=== PATIENT | female | born 1975 | race Caucasian/White ===

== ENCOUNTER 2016-07-21 16:59 | Emergency (ER) | payer SELFPAY ==
[2016-07-21 17:55] VITALS: BP 120/70
--- NOTE | 2016-07-21 18:26 | UC ---
Complaint Female HPI - HPI Summary HPI Summary: Period ended 4 days ago, but has continued to see red/brown when she wipes. Nothing when not urinating, so not sure if it is urinary bleeding or vag bleeding. Also feeling very wiped out, crampy low back pain, and elevated blood sugars when she checks them. Wonders if it could be a urinary infection. - History Of Current Complaint Stated Complaint: BACK PAIN,BLOOD IN URINE Time Seen by Provider: 07/21/16 17:37 Hx Obtained From: Patient Hx Last Menstrual Period: 03/08/15 ?: No Onset/Duration: Gradual Onset, Lasting Days Timing: Constant Severity Initially: Mild Severity Currently: Mild Character: Cramping Aggravating Factor(s): Urination Alleviating Factor(s): Nothing Associated Signs And Symptoms: Positive: Vaginal Bleeding/Discharge - Allergies/Home Medications Allergies/Adverse Reactions: Allergies Allergy/AdvReac Type Severity Reaction Status Date / Time Lisinopril Allergy Swelling Verified 07/21/16 17:56 Of Face,Lips,& Throat [place] Allergy Airway Uncoded 07/21/16 17:56 Obstruction Home Medications: Home Medications Insulin LISPRO* [HumaLOG*] 5 units 07/21/16 [History] Ranitidine HCl [Zantac] 1 tab 07/21/16 [History] PMH/Surg Hx/FS Hx/Imm Hx Endocrine History Of: Reports: Diabetes - TYPE 1 Denies: Thyroid Disease Cardiovascular History Of: Denies: Cardiac Disorders, Hypertension, Myocardial Infarction Respiratory History Of: Denies: COPD, Asthma GI/ History Of: Reports: Renal Disease - PROTEINURIA Denies: Ulcer - Surgical History Surgical History: Yes Surgery Procedure, Year, and Place: C-SECTIONS 1995 & 1999. TUBAL LIGATION - Family History Known Family History: Positive: Cardiac Disease, Diabetes - Social History Occupation: Employed Full-time Alcohol Use: None Substance Use Type: Excessive Caffeine Smoking Status (MU): Never Smoked Tobacco Review of Systems Constitutional: Negative Skin: Negative Eyes: Negative ENT: Negative Respiratory: Negative Cardiovascular: Negative Gastrointestinal: Negative Genitourinary: Hematuria Motor: Negative Neurovascular: Negative Musculoskeletal: Negative Neurological: Negative Psychological: Negative All Other Systems Reviewed And Are Negative: Yes Physical Exam Triage Information Reviewed: Yes Appearance: No Pain Distress, Well-Nourished Vital Signs Reviewed: Yes Eye Exam: Normal Eyes: Positive: Conjunctiva Clear ENT Exam: Normal ENT: Positive: Normal ENT inspection, Hearing grossly normal, Pharynx normal, TMs normal Dental Exam: Normal Neck exam: Normal Neck: Positive: Supple, Nontender, No Lymphadenopathy Respiratory Exam: Normal Respiratory: Positive: Chest non-tender, Lungs clear, Normal breath sounds, No respiratory distress, No accessory muscle use Cardiovascular Exam: Normal Cardiovascular: Positive: RRR, No Murmur Abdomen Description: Positive: Nontender. Negative: CVA Tenderness (R), CVA Tenderness (L) Musculoskeletal Exam: Normal Neurological Exam: Normal Psychological Exam: Normal Skin Exam: Normal Complaint Female Dx - Differential Dx/Diagnosis Provider Diagnoses: vaginal spotting. low back pain Discharge - Discharge Plan Condition: Stable Disposition: HOME Patient Education Materials: Back Pain (ED) Referrals: Ramsey Ortega MD [Primary Care Provider] - Additional Instructions: As we discussed, you do not appear to have a UTI. If your symptoms do not resolve by your next period, I recommend you see your primary care provider or your [facility].
== END 2016-07-21 18:39 | disposition home or self-care (01) ==
LOC: UCEAST 16:59
DX: N93.9 Abnormal uterine and vaginal bleeding, unspecified (principal); M54.5 Low back pain; R80.9 Proteinuria, unspecified; Z32.02 Encounter for pregnancy test, result negative; E10.9 Type 1 diabetes mellitus without complications; Z79.4 Long term (current) use of insulin; Z88.8 Allergy status to other drugs, medicaments and biological substances
CPT/HCPCS: 81003; 84702; 87077; 87086; 87186; 99212; G0463

== ENCOUNTER 2017-07-04 19:11 | Emergency (ER) | payer OTHER ==
[2017-07-04 19:35] VITALS: BP 125/70
--- NOTE | 2017-07-04 19:36 | UC ---
Respiratory Complaint HPI - HPI Summary HPI Summary: Pt presents with a productive cough and feeling as if someone is "sitting on her chest" for the last week. She tells me that she feels she cannot get a good breath and feels SOB at times. She tells me that she is a type 1 diabetic and is on insulin. Her sugars normally run around 150-180, but this week have been around 350...earlier tonight was 389. She did call her PCP a few days ago and was told to take OTC mucinex, which she has been with no relief. She denies fever, chills, dizziness, headache, chest pain, abdominal pain, n/v/d/c, or dysuria. - History of Current Complaint Chief Complaint: UCRespiratory Stated Complaint: COUGH,CONGESTED Time Seen by Provider: 07/04/17 19:32 Hx Obtained From: Patient Hx Last Menstrual Period: 06/21/2017 Onset/Duration: Gradual Onset Severity Currently: None Character: Cough: Productive - Allergies/Home Medications Allergies/Adverse Reactions: Allergies Allergy/AdvReac Type Severity Reaction Status Date / Time gerardo Allergy Difficulty Verified 07/04/17 19:26 Breathing lisinopril Allergy Swelling Verified 07/04/17 19:26 Of Face,Lips,& Throat [place] Allergy Airway Uncoded 07/04/17 19:26 Obstruction PMH/Surg Hx/FS Hx/Imm Hx Endocrine History: Diabetes - Surgical History Surgical History: Yes Surgery Procedure, Year, and Place: C-SECTIONS 1995 & 1999. TUBAL LIGATION - Family History Known Family History: Positive: Cardiac Disease, Diabetes - Social History Occupation: Employed Part-time Lives: With Family Alcohol Use: None Substance Use Type: Excessive Caffeine Smoking Status (MU): Never Smoked Tobacco Review of Systems Constitutional: Negative Skin: Negative Eyes: Negative ENT: Sore Throat Respiratory: Cough Cardiovascular: Negative Gastrointestinal: Negative Musculoskeletal: Negative Neurological: Negative Psychological: Negative All Other Systems Reviewed And Are Negative: Yes Physical Exam Triage Information Reviewed: Yes Appearance: No Pain Distress, Well-Nourished, Ill-Appearing - Mildly Vital Signs: Initial Vital Signs Temp 98.9 F 07/04/17 19:23 Pulse 119 07/04/17 19:23 Resp 18 07/04/17 19:23 BP 125/70 07/04/17 19:23 Pulse Ox 99 02/28/18 19:23 Vital Signs Reviewed: Yes Eyes: Positive: Conjunctiva Clear. Negative: Conjunctiva Inflamed, Discharge ENT: Positive: Hearing grossly normal, Pharynx normal, TMs normal, Uvula midline. Negative: Pharyngeal erythema, Nasal congestion, Nasal drainage, TM bulging, TM dull, TM red, Tonsillar swelling, Tonsillar exudate, Hoarse voice, Sinus tenderness Neck: Positive: Supple, Nontender, No Lymphadenopathy Respiratory: Positive: Lungs clear, Normal breath sounds, No respiratory distress, No accessory muscle use Cardiovascular: Positive: No Murmur, Pulses Normal, Brisk Capillary Refill, Tachycardia Neurological: Positive: Fatigued Psychological: Positive: Age Appropriate Behavior Skin: Negative: rashes, significant lesion(s) UC Diagnostic Evaluation - Laboratory O2 Sat by Pulse Oximetry: 99 Respiratory Course/Dx - Course Course Of Treatment: POC flu negative. CXR: IMPRESSION: NO ACTIVE DISEASE. EKG : sinus tachycardia at 112. No ST changes as read by Dr. Delgado. POC Glucose: 410. UA: 2+ glucose and 2+ ketones with trace blood. Given no clear source of infection, her increasing BS levels, and ketonuria today, I have advised her to seek further evaluation in the ED. She refused ambulance and will go by private vehicle. - Differential Dx/Diagnosis Provider Diagnoses: Cough. SOB. DM1 Discharge - Discharge Plan Condition: Stable Disposition: OTHER Discharge Disposition Comment: [place] [facility] [place] Forms: *Work Release Referrals: Nemo WOLFE,Mathew Tabor [Primary Care Provider] - Additional Instructions: Please report to the [facility] [place]. If your symptoms worsen - please tap puller and call 911 immediately.
--- NOTE | 2017-07-04 20:15 | RAD ---
INDICATION: Cough COMPARISON: February 17, 2016 TECHNIQUE: PA and lateral dual-energy views were obtained. FINDINGS: Bones/Soft Tissues: There are no acute bony findings. Cardiomediastinal: The cardiomediastinal silhouette is normal. Lungs: There are no infiltrates. Pleura: There are no pleural effusions. Other: None IMPRESSION: NO ACTIVE DISEASE.
== END 2017-07-04 20:50 ==
LOC: UCEAST 19:11
DX: R05 Cough (principal); R06.02 Shortness of breath; E10.9 Type 1 diabetes mellitus without complications; Z79.4 Long term (current) use of insulin; Z88.8 Allergy status to other drugs, medicaments and biological substances
CPT/HCPCS: 71046; 81003; 87502; 93005; 99212; G0463

== ENCOUNTER 2017-07-04 21:14 | Emergency (ER) | payer OTHER ==
[2017-07-04] MEDS ORDERED: NS 0.9% 1000 ML* 1,000 ML IV ONE (22:31)
[2017-07-04] MEDS ORDERED: Insulin REGULAR(*) 1 UNITS UNIT IV PUSH ONE (22:42)
[2017-07-04 23:11] LABS: EGFR Non-African American 60.4 (>60)
[2017-07-04 23:14] LABS: ABS Basophils 0.1 10^3/ul (0-0.2); ABS Eosinophils 0.2 10^3/ul (0-0.6); ABS Lymphocytes 2.6 10^3/ul (1.0-4.8); ABS Monocytes 0.8 10^3/ul (0-0.8); ABS Neutrophils 5.6 10^3/ul (1.5-7.7); ABS Nucleated RBC 0 10^3/ul; Eosinophil % 1.9 % (0-6); Hematocrit 34 % (35-47); Hemoglobin 10.7 g/dl (12.0-16.0); Lymphocyte % 27.8 % (25-47); Mean Corpuscular HGB Conc 32 g/dl (31-36); Mean Corpuscular Hemoglobin 22 pg (27-31); Mean Corpuscular Volume 71 fL (80-97); Mean Platelet Volume 8 um3 (7.4-10.4); Nucleated Red Blood Cells % 0; Platelet Count 365 10^3/ul (150-450); Red Blood Count 4.79 10^6/ul (4.0-5.4); Red Cell Distribution Width 16 % (10.5-15); White Blood Count 9.2 10^3/ul (3.5-10.8)
--- NOTE | 2017-07-05 00:16 | ED ---
Pablo Cruz Gabriel, scribed for Franci Johnson MD on 07/04/17 at 2201 . HPI Diabetic - HPI Summary HPI Summary: This patient is a 41 year old F presenting to [facility] after being seen at [facility] and sent for blood glucose of 401. Pt was seen at [facility] for a respiratory complaint that began a week ago Patient reports cough and CP. Patient denies fever. The patient rates the pain 3/10 in severity. Pt states she has type I diabetes and takes humalog and levemir. Pt had a negative flu swab and CXR at [facility]. - History Of Current Complaint Chief Complaint: EDDiabeticProb Time Seen by Provider: 07/04/17 21:51 Hx Obtained From: Patient Hx Last Menstrual Period: 06/21/2017 Onset/Duration: Lasting Hours, Lasting Weeks, Still Present Timing: Constant Severity Initially: Moderate Severity Currently: Moderate Character: Alert Aggravating: Recent Illness Associated Signs & Symptoms: Negative - fever, Cough Related History: DM I - Allergies/Home Medications Allergies/Adverse Reactions: Allergies Allergy/AdvReac Type Severity Reaction Status Date / Time gerardo Allergy Difficulty Verified 07/04/17 21:24 Breathing lisinopril Allergy Swelling Verified 07/04/17 21:24 Of Face,Lips,& Throat [place] Allergy Airway Uncoded 07/04/17 21:24 Obstruction PMH/Surg Hx/FS Hx/Imm Hx Endocrine/Hematology History: Reports: Hx Diabetes - TYPE 1 Denies: Hx Thyroid Disease Cardiovascular History: Reports: Hx Angina Denies: Hx Coronary Artery Disease, Hx Hypercholesterolemia, Hx Hypertension , Hx Myocardial Infarction, Hx Valvular Heart Disease Respiratory History: Denies: Hx Asthma, Hx Chronic Obstructive Pulmonary Disease (COPD) GI History: Denies: Hx Ulcer History: Reports: Hx Renal Disease - PROTEINURIA - Surgical History Surgery Procedure, Year, and Place: C-SECTIONS 1995 & 1999. TUBAL LIGATION Infectious Disease History: No Infectious Disease History: Denies: Hx Clostridium Difficile, Hx Hepatitis, Hx Human Immunodeficiency Virus (HIV), Hx of Known/Suspected MRSA, Hx Shingles, Hx Tuberculosis, Hx Known/ Suspected VRE, Hx Known/Suspected VRSA, History Other Infectious Disease, Traveled Outside the [place] in Last 30 Days - Family History Known Family History: Positive: Cardiac Disease, Diabetes - Social History Alcohol Use: None Hx Substance Use: Yes Substance Use Type: Reports: Excessive Caffeine Hx Tobacco Use: No Smoking Status (MU): Never Smoked Tobacco Review of Systems Negative: Fever Positive: Chest Pain Positive: Cough All Other Systems Reviewed And Are Negative: Yes Physical Exam - Summary Physical Exam Summary: VITAL SIGNS: Reviewed. GENERAL: Patient is a well-developed and nourished female who is lying comfortable in the stretcher. Patient is not in any acute respiratory distress. HEAD AND FACE: No signs of trauma. No ecchymosis, hematomas or skull depressions. No sinus tenderness. EYES: PERRLA, EOMI x 2, No injected conjunctiva, no nystagmus. EARS: Hearing grossly intact. Ear canals and tympanic membranes are within normal limits. MOUTH: Oropharynx within normal limits. NECK: Supple, trachea is midline, no adenopathy, no JVD, no carotid bruit, no c- spine tenderness, neck with full ROM. CHEST: Symmetric, no tenderness at palpation LUNGS: Clear to auscultation bilaterally. No wheezing or crackles. CVS: tachycardic, S1 and S2 present, no murmurs or gallops appreciated. ABDOMEN: Soft, non-tender. No signs of distention. No rebound no guarding, and no masses palpated. Bowel sounds are normal. EXTREMITIES: FROM in all major joints, no edema, no cyanosis or clubbing. NEURO: Alert and oriented x 3. No acute neurological deficits. Speech is normal and follows commands. SKIN: Dry and warm Triage Information Reviewed: Yes Vital Signs On Initial Exam: Initial Vitals Temp Pulse Resp BP Pulse Ox 97.7 F 109 16 129/83 98 07/04/17 21:19 07/04/17 21:19 07/04/17 21:19 07/04/17 21:19 07/04/17 21:19 Vital Signs Reviewed: Yes Diagnostics - Vital Signs Vital Signs Temp Pulse Resp BP Pulse Ox 07/04/17 21:19 97.7 F 109 16 129/83 98 - Laboratory Result Diagrams: 07/04/17 22:47 07/04/17 22:47 Lab Statement: Any lab studies that have been ordered have been reviewed, and results considered in the medical decision making process. Diabetic Course/Dx - Course Assessment/Plan: This patient is a 41 year old F presenting to [facility] after being seen at [facility] and sent for blood glucose of 401. Pt was seen at [facility] for a respiratory complaint that began a week ago Patient reports cough and CP. Patient denies fever. The patient rates the pain 3/10 in severity. Pt states she has type I diabetes and takes humalog and levemir. Pt had a negative flu swab and CXR at [facility]. Test results with no significant abnormalities except for a blood glucose of 220. In the ED course the patient was given insulin and IV fluids. Dx hyperglycemia and viral syndrome. Patient will be discharged and follow up from PCP. The patient is agreeable with this plan. - Diagnoses Provider Diagnoses: Viral syndrome, Hyperglycemia Discharge - Discharge Plan Condition: Stable Disposition: HOME Patient Education Materials: Diabetic Hyperglycemia (ED), Viral Syndrome (ED) Referrals: Nemo WOLFE,Mathew Tabor [Primary Care Provider] - 5 Days Additional Instructions: RETURN TO EMERGENCY DEPARTMENT FOR ANY NEW OR WORSENING SYMPTOMS The documentation as recorded by the Pablo alcantara Gabriel accurately reflects the service I personally performed and the decisions made by , Franci Johnson MD.
[2017-07-05 00:34] LABS: Urine Appearance Clear; Urine Blood Negative (Negative); Urine Color Colorless; Urine Ketones Negative (Negative); Urine Protein Negative (Negative); Urine Specific Gravity 1.008 (1.010-1.030); Urine Urobilinogen Negative (Negative)
[2017-07-05 00:52] VITALS: BP 136/77
== END 2017-07-05 00:50 | disposition home or self-care (01) ==
LOC: ED 21:14
DX: B34.9 Viral infection, unspecified (principal); E10.65 Type 1 diabetes mellitus with hyperglycemia; R07.9 Chest pain, unspecified; R05 Cough
CPT/HCPCS: 36415; 80053; 81003; 83605; 83735; 84702; 85025; 85730; 86140; 96360; 99284

== ENCOUNTER 2018-03-08 17:24 | Emergency (ER) | payer OTHER ==
[2018-03-08 17:50] VITALS: BP 109/63
--- NOTE | 2018-03-08 18:31 | UC ---
Respiratory Complaint HPI - HPI Summary HPI Summary: Patient complains of several weeks of URI symptoms including cough, congestion, sore throat and ear pain. For the past 1-2 weeks has also been very thirsty and achy. Blood sugars started running higher than normal into the 300s. States she normally runs 140s-180s. No a1c in over a year. States her boyfriend said her breath smelled fruity. - History of Current Complaint Chief Complaint: UCGeneralIllness Stated Complaint: CHILLS, COUGH, AND CHEST CONGESTION Time Seen by Provider: 03/08/18 18:03 Hx Obtained From: Patient Hx Last Menstrual Period: 184001 Onset/Duration: Gradual Onset, Lasting Weeks, Still Present Timing: Constant Severity Initially: Moderate Severity Currently: Moderate Pain Intensity: 5 Pain Scale Used: 0-10 Numeric Character: Cough: Nonproductive Aggravating Factors: Nothing Alleviating Factors: Nothing Associated Signs And Symptoms: Positive: URI, Nasal Congestion. Negative: Dyspnea, Fever, Wheezing - Allergies/Home Medications Allergies/Adverse Reactions: Allergies Allergy/AdvReac Type Severity Reaction Status Date / Time gerardo Allergy Difficulty Verified 03/08/18 17:50 Breathing lisinopril Allergy Swelling Verified 03/08/18 17:50 Of Face,Lips,& Throat [place] Allergy Airway Uncoded 03/08/18 17:50 Obstruction Home Medications: Home Medications Acetaminophen TAB* [Tylenol TAB*] 975 mg PO Q4H PRN 03/08/18 [History Confirmed 03/08/18] PMH/Surg Hx/FS Hx/Imm Hx Endocrine History: Diabetes - TYPE I - Surgical History Surgical History: Yes Surgery Procedure, Year, and Place: C-SECTIONS 1995 & 1999. TUBAL LIGATION - Family History Known Family History: Positive: Cardiac Disease, Diabetes - Social History Alcohol Use: None Substance Use Type: None Smoking Status (MU): Never Smoked Tobacco Review of Systems Constitutional: Fatigue, Other - THIRSTY ENT: Sore Throat, Ear Ache, Nasal Discharge Respiratory: Cough Cardiovascular: Negative Gastrointestinal: Negative All Other Systems Reviewed And Are Negative: Yes Physical Exam Triage Information Reviewed: Yes Appearance: Well-Appearing, No Pain Distress, Well-Nourished Vital Signs: Initial Vital Signs Temp 98.0 F 03/08/18 17:44 Pulse 77 03/08/18 17:44 Resp 16 03/08/18 17:44 BP 109/63 03/08/18 17:44 Pulse Ox 100 03/08/18 17:44 Laboratory Tests 03/08/18 18:08 POC Glucose (mg/dL) 371 H Vital Signs Reviewed: Yes Eyes: Positive: Conjunctiva Clear ENT: Positive: Hearing grossly normal, Pharynx normal, Other - RIGHT TM NORMAL. LEFT TM OCCLUDED BY CERUMEN Neck: Positive: Supple, Nontender, No Lymphadenopathy Respiratory Exam: Normal Cardiovascular Exam: Normal Abdomen Description: Positive: Soft Musculoskeletal: Positive: No Edema Neurological: Positive: Alert Psychological: Positive: Age Appropriate Behavior Skin: Negative: rashes UC Diagnostic Evaluation - Laboratory O2 Sat by Pulse Oximetry: 100 Respiratory Course/Dx - Course Course Of Treatment: PT OFFERED TRANSPORT TO THE ED BY AMBULANCE BUT DECLINES. ADVISED THAT BY NOT TRAVELING IN A MONITORED SETTING SHE COULD BE RISKING WORSENING OF HER CONDITION THAT COULD POSE A THREAT TO HER LIFE, HEALTH AND MEDICAL SAFETY. SHE VERBALIZES UNDERSTANDING AND CONTINUES TO DECLINE AMBULANCE TRANSFER. - Differential Dx/Diagnosis Provider Diagnoses: DIABETIC HYPERGLYCEMIA Discharge - Sign-Out/Discharge Documenting (check all that apply): Patient Departure All imaging exams completed and their final reports reviewed: No Studies - Discharge Plan Condition: Stable Disposition: TRANS HIGHER LVL OF CARE FAC Patient Education Materials: Diabetic Ketoacidosis (DC), Diabetic Hyperglycemia (ED) Referrals: Nemo WOLFE,Mathew Tabor [Primary Care Provider] - If Needed Additional Instructions: YOUR FINGER STICK SUGAR TODAY WAS 371. GIVEN YOUR PROLONGED ILLNESS, ELEVATED BLOOD SUGAR AND EXCESSIVE THIRST RECOMMEND ED EVALUATION. YOU LIKELY WOULD BENEFIT FROM LABS AND FLUID HYDRATION. GO DIRECTLY TO THE [facility] [place] [facility] ED FROM HERE FOR FURTHER EVALUATION. YOU HAVE DECLINED TRANSFER TO THE ED BY AMBULANCE. BE ADVISED THAT BY NOT TRAVELING IN A MONITORED SETTING YOU COULD BE RISKING WORSENING OF YOUR CONDITION THAT COULD POSE A THREAT TO YOUR LIFE, HEALTH AND MEDICAL SAFETY. - Billing Disposition and Condition Condition: STABLE Disposition: Trans Higher Lvl of Care Fac
== END 2018-03-08 18:30 | disposition home or self-care (01) ==
LOC: UCEAST 17:24
DX: E10.65 Type 1 diabetes mellitus with hyperglycemia (principal); R05 Cough; R09.89 Other specified symptoms and signs involving the circulatory and respiratory systems; J02.9 Acute pharyngitis, unspecified; H92.01 Otalgia, right ear; R68.83 Chills (without fever); H61.22 Impacted cerumen, left ear; R63.1 Polydipsia; Z91.09 Other allergy status, other than to drugs and biological substances; Z91.018 Allergy to other foods; Z88.8 Allergy status to other drugs, medicaments and biological substances
CPT/HCPCS: 99212; G0463

== ENCOUNTER 2018-03-08 19:13 | Emergency (ER) | payer OTHER ==
[2018-03-08 19:53] LABS: Hematocrit 35 % (35-47); Hemoglobin 11.3 g/dl (12.0-16.0); INR 0.86 (0.77-1.02); Mean Corpuscular HGB Conc 32 g/dl (31-36); Mean Corpuscular Hemoglobin 23 pg (27-31); Mean Corpuscular Volume 71 fL (80-97); Mean Platelet Volume 8.2 fL (7.4-10.4); Platelet Count 432 10^3/ul (150-450); Red Blood Count 4.93 10^6/ul (4.00-5.40); Red Cell Distribution Width 18 % (10.5-15); White Blood Count 9.3 10^3/ul (3.5-10.8)
--- NOTE | 2018-03-08 20:01 | ED ---
HPI Chest Pain - HPI Summary HPI Summary: This patient is a 42 year old F presenting to [facility] upon referral from [facility] with a chief complaint of right chest heaviness and mild SOB since a few days ago. Patient reports that at [facility] her blood sugar was high and they wanted to rule out DKA. The patient rates the pain 3/10 in severity. Symptoms aggravated by deep breaths and coughing. Symptoms alleviated by palpation. Patient reports cough, back discomfort, and chills. Patient denies N/ V/D, fevers, or abd pain. Pt has hx of type 1 DM, MRSA, HERPES and [place] 22 years ago as a DM complication. Pt had a tubal ligation in 2006. Pt reports that she took Tylenol at 17:00. - History of Current Complaint Chief Complaint: EDChestPainROMI Time Seen by Provider: 03/08/18 19:38 Hx Obtained From: Patient Hx Last Menstrual Period: [id number] Onset/Duration: Started Days Ago, Atraumatic, Still Present Timing: Lasting Days Initial Severity: Mild Current Severity: Mild Pain Intensity: 3 Pain Scale Used: 0-10 Numeric Chest Pain Location: Right Anterior Chest Pain Radiates: Yes Chest Pain Radiates To:: Back Character: Heaviness Aggravating Factor(s): Deep Breaths, Other: - cough Alleviating Factor(s): Other: - palpation Associated Signs and Symptoms: Positive: Chest Pain, Shortness of Breath, Chills , Cough, Back Pain. Negative: Fever, Nausea, Vomiting - Additional Pertinent History Primary Care Physician: [id number] - Allergy/Home Medications Allergies/Adverse Reactions: Allergies Allergy/AdvReac Type Severity Reaction Status Date / Time gerardo Allergy Difficulty Verified 03/08/18 17:50 Breathing lisinopril Allergy Swelling Verified 03/08/18 17:50 Of Face,Lips,& Throat NSAIDS (Non-Steroidal AdvReac See Comment Verified 03/08/18 19:41 Anti-Inflamma [place] Allergy Airway Uncoded 03/08/18 17:50 Obstruction PMH/Surg Hx/FS Hx/Imm Hx Endocrine/Hematology History: Reports: Hx Diabetes - TYPE 1 Denies: Hx Thyroid Disease Cardiovascular History: Reports: Hx Angina, Hx Myocardial Infarction - 1995 [place] from [place] Denies: Hx Coronary Artery Disease, Hx Hypercholesterolemia, Hx Hypertension , Hx Valvular Heart Disease Respiratory History: Denies: Hx Asthma, Hx Chronic Obstructive Pulmonary Disease (COPD) GI History: Denies: Hx Ulcer History: Reports: Hx Renal Disease - PROTEINURIA - Surgical History Surgery Procedure, Year, and Place: C-SECTIONS 1995 & 1999. TUBAL LIGATION Infectious Disease History: No Infectious Disease History: Denies: Hx Clostridium Difficile, Hx Hepatitis, Hx Human Immunodeficiency Virus (HIV), Hx of Known/Suspected MRSA, Hx Shingles, Hx Tuberculosis, Hx Known/ Suspected VRE, Hx Known/Suspected VRSA, History Other Infectious Disease, Traveled Outside the [place] in Last 30 Days - Family History Known Family History: Positive: Cardiac Disease, Diabetes - Social History Alcohol Use: None Hx Substance Use: Yes Substance Use Type: Reports: None Hx Tobacco Use: No Smoking Status (MU): Never Smoked Tobacco Review of Systems Positive: Chills. Negative: Fever Positive: Chest Pain - right chest discomfort Positive: Shortness Of Breath, Cough Negative: Abdominal Pain, Vomiting, Diarrhea, Nausea Negative: Rash All Other Systems Reviewed And Are Negative: Yes Physical Exam - Summary Physical Exam Summary: GENERAL: Patient is a well-developed and nourished F who is lying comfortable in the stretcher. Patient is not in any acute respiratory distress. HEAD AND FACE: Normocephalic EYES: PERRLA, EOMI x 2. EARS: Hearing grossly intact. MOUTH: Oropharynx within normal limits. Mildly dry mucous membranes. NECK: Supple, trachea is midline, no adenopathy, no JVD, no carotid bruit. CHEST: Symmetric, no tenderness at palpation LUNGS: Clear to auscultation bilaterally. No wheezing or crackles. CVS: Regular rate and rhythm, S1 and S2 present, no murmurs or gallops appreciated. ABDOMEN: Soft, non-tender. Bowel sounds are normal. No abdominal abnormal pulsations. EXTREMITIES: Full ROM in all major joints, no edema, no cyanosis or clubbing. NEURO: Alert and oriented x 3. No acute neurological deficits. Speech is normal and follows commands. SKIN: Dry and warm Triage Information Reviewed: Yes Vital Signs On Initial Exam: Initial Vitals Temp Pulse Resp BP Pulse Ox 98.1 F 103 18 125/92 99 03/08/18 19:19 03/08/18 19:19 03/08/18 19:19 03/08/18 19:19 03/08/18 19:19 Vital Signs Reviewed: Yes Diagnostics - Vital Signs Vital Signs Temp Pulse Resp BP Pulse Ox 03/08/18 19:19 98.1 F 103 18 125/92 99 - Laboratory Result Diagrams: 03/08/18 19:38 03/08/18 19:38 Lab Statement: Any lab studies that have been ordered have been reviewed, and results considered in the medical decision making process. - Radiology CXR Radiology Interpretation Completed By: ED Physician - pending official report Summary of Radiographic Findings: no acute cardiopulmonary disease - EKG 19:34 Cardiac Rate: NL - at 97 bpm EKG Rhythm: Sinus Rhythm Summary of EKG Findings: NSR at 97 bpm with no ischemic changes Chest Pain Course/Dx - Course Course Of Treatment: This patient is a 42 year old F presenting to [facility] upon referral from [facility] with high blood glucose, right chest heaviness and mild SOB since a few days ago. Pt has hx of type 1 DM, MRSA, HERPES and [place] 22 years ago as a DM complication. No concern for due to tubal ligation. An EKG reveals NSR at 97 bpm with no ischemic changes. CXR reveals, per ED physician, no acute disease. Workup is unremarkable with low blood glucose. Discussed care with Dr. Burk, hospitalist, at 21:16. She advised that patient be monitored for another 2 hours and her blood glucose checked. Patient s blood glucose stabilized. The patient will be discharged. I discussed results with patient and she reports feeling better. She is hemodynamically stable and safe for discharge. Strict return precautions given and she will otherwise follow up with her PCP. - Diagnoses Provider Diagnoses: Pleuritic chest pain - Provider Notifications Discussed Care Of Patient With: Purnima Burk Time Discussed With Above Provider: 21:16 Instructed by Provider To: Other - Dr. Burk, hospitalist, advised that patient be monitored for another 2 hours and her blood glucose checked. Once the pt's blood glucose stabilizes, she can be sent home. Discharge - Sign-Out/Discharge Documenting (check all that apply): Patient Departure - discharge home - Discharge Plan Condition: Stable Disposition: HOME Patient Education Materials: Chest Pain (ED), Managing Diabetes During Sick Days (ED) Referrals: Nemo WOLFE,Mathew Tabor [Primary Care Provider] - 1 Day Additional Instructions: Follow up with primary care physician in 1-3 days. Return to the emergency department with any new or worsening symptoms. - Billing Disposition and Condition Condition: STABLE Disposition: Home - Attestation Statements Document Initiated by Scribe: Yes Documenting Scribe: Angy Brownlee Provider For Whom Julio is Documenting (Include Credential): Kennedy Harris MD Scribe Attestation: Angy Cruz, scribed for Kennedy Harris MD on 03/09/18 at 2135. Scribe Documentation Reviewed: Yes Provider Attestation: The documentation as recorded by the jorgeibAngy meza accurately reflects the service I personally performed and the decisions made by , Diamond Harris MD
[2018-03-08 20:15] LABS: EGFR Non-African American 79.8 (>60)
[2018-03-08 20:43] LABS: ABS Basophils 0.1 10^3/ul (0-0.2); ABS Eosinophils 0.3 10^3/ul (0-0.6); ABS Lymphocytes 3.1 10^3/ul (1.0-4.8); ABS Monocytes 0.7 10^3/ul (0-0.8); ABS Neutrophils 5.2 10^3/ul (1.5-7.7); ABS Nucleated RBC 0 10^3/ul; Eosinophil % 2.9 % (0-6); Lymphocyte % 32.9 % (25-47); Nucleated Red Blood Cells % 0.1
[2018-03-08] MEDS ORDERED: Dextrose 50% Syringe 50 ML* 25 GM/50 ML SYRINGE IV PUSH ONE (20:45)
[2018-03-08] MEDS ORDERED: traMADol TAB* 50 MG PO ONE (20:48)
[2018-03-08 21:54] LABS: Urine Appearance Cloudy; Urine Blood Negative (Negative); Urine Color Yellow; Urine Ketones Negative (Negative); Urine Protein Negative (Negative); Urine Specific Gravity 1.012 (1.010-1.030); Urine Urobilinogen Negative (Negative)
[2018-03-09 00:41] VITALS: BP 124/76
--- NOTE | 2018-03-09 09:42 | RAD ---
INDICATION: Cough COMPARISON: Most recent comparison chest x-rays dated July 04, 2017 TECHNIQUE: PA and lateral views of the chest were obtained. FINDINGS: The heart and mediastinum are normal in size and contour. The lungs are grossly clear. There is no evidence of large pleural effusion. Visualized bones are normal for the patient's age. There is no radiographic evidence of free air beneath the diaphragm IMPRESSION: No radiographic evidence of acute cardiopulmonary disease. R0
== END 2018-03-09 00:38 | disposition home or self-care (01) ==
LOC: ED 19:13
DX: R07.89 Other chest pain (principal); R06.02 Shortness of breath; R05 Cough; M54.9 Dorsalgia, unspecified; E10.9 Type 1 diabetes mellitus without complications
CPT/HCPCS: 36415; 71046; 80053; 80320; 81003; 82803; 84484; 85025; 85379; 85610; 85730; 87651; 93005; 99283; A9270-GY; G0480

== ENCOUNTER 2018-07-29 10:43 | Emergency (ER) | payer OTHER ==
--- NOTE | 2018-07-29 11:06 | ED ---
Dizziness - HPI Summary HPI Summary: Pt is a 42 y/o female who presents to the ED c/o dizziness. For the past 4 days shes had flu-like symptoms, consisting of cough, diarrhea, and N/V secondary to coughing. Yesterday she began to have room-spinning dizziness when standing up, and head-spinning dizziness when closing her eyes. Pt states that she feels like something is pushing against the front of me when walking, and it inhibits her from walking steadily. Pt is a type I diabetic and said her BG was mildly high yesterday, but was normal today with a reading of 143 then 92. She also c/o polydipsia and notes that her boyfriend said her urine smelled unusual yesterday. She did not get this seasons flu vaccine. PMHx [place] due to DKA, and MRSA (inactive). - History Of Current Complaint Chief Complaint: EDDizziness Stated Complaint: BODY ACHES/DIZZINESS/CONGESTION Time Seen by Provider: 07/29/18 10:54 Hx Obtained From: Patient Onset/Duration: Still Present Timing: Constant Character: Head Spinning, Room Spinning Aggravating Factor(s): Supine To Erect, Other - closing eyes Alleviating Factor(s): Nothing Associated Signs And Symptoms: Positive: Nausea, Vomiting, Diarrhea, Unsteady Gait - Allergies/Home Medications Allergies/Adverse Reactions: Allergies Allergy/AdvReac Type Severity Reaction Status Date / Time gerardo Allergy Difficulty Verified 03/08/18 17:50 Breathing lisinopril Allergy Swelling Verified 03/08/18 17:50 Of Face,Lips,& Throat NSAIDS (Non-Steroidal AdvReac See Comment Verified 03/08/18 19:41 Anti-Inflamma [place] Allergy Airway Uncoded 03/08/18 17:50 Obstruction PMH/Surg Hx/FS Hx/Imm Hx Endocrine/Hematology History: Reports: Hx Diabetes - TYPE 1 Denies: Hx Thyroid Disease Cardiovascular History: Reports: Hx Angina, Hx Myocardial Infarction - 1995 [place] Denies: Hx Coronary Artery Disease, Hx Hypercholesterolemia, Hx Hypertension , Hx Valvular Heart Disease Respiratory History: Denies: Hx Asthma, Hx Chronic Obstructive Pulmonary Disease (COPD) GI History: Denies: Hx Ulcer History: Reports: Hx Renal Disease - PROTEINURIA - Surgical History Surgery Procedure, Year, and Place: C-SECTIONS 1995 & 1999. TUBAL LIGATION Infectious Disease History: Yes Infectious Disease History: Reports: Hx of Known/Suspected MRSA - "inactive" Denies: Hx Clostridium Difficile, Hx Hepatitis, Hx Human Immunodeficiency Virus (HIV), Hx Shingles, Hx Tuberculosis, Hx Known/Suspected VRE, Hx Known/ Suspected VRSA, History Other Infectious Disease, Traveled Outside the [place] in Last 30 Days - Family History Known Family History: Positive: Cardiac Disease, Diabetes - Social History Alcohol Use: None Hx Substance Use: No Substance Use Type: Reports: None Hx Tobacco Use: No Smoking Status (MU): Never Smoked Tobacco Review of Systems Positive: Other - polydipsia Positive: Cough Positive: Vomiting - secondary to coughing, Diarrhea, Nausea - secondary to coughing Positive: other - "unusual smelling" urine Positive: Other - unsteady gait Neurological: Other - Dizziness- room-spinning and head-spinning All Other Systems Reviewed And Are Negative: Yes Physical Exam - Summary Physical Exam Summary: Appearance: well appearing, no pain distress Skin: warm, dry, reflects adequate perfusion, patch of dry skin on left scapula Head/face: normal Eyes: EOMI, TISHA ENT: mucous membranes moist, clear fluid behind right TM Neck: supple, non-tender Respiratory: CTA, breath sounds present Cardiovascular: RRR, pulses symmetrical Abdomen: non-tender, soft, no CVA tenderness Bowel Sounds: present Musculoskeletal: normal, strength/ROM intact Neuro: normal, sensory motor intact, A&Ox3 Triage Information Reviewed: Yes Vital Signs On Initial Exam: Initial Vitals Temp Pulse Resp BP Pulse Ox 97.8 F 92 18 117/76 98 07/29/18 10:53 07/29/18 10:53 07/29/18 10:53 07/29/18 10:53 07/29/18 10:53 Vital Signs Reviewed: Yes Diagnostics - Vital Signs Vital Signs Temp Pulse Resp BP Pulse Ox 07/29/18 10:53 97.8 F 92 18 117/76 98 - Laboratory Result Diagrams: 07/29/18 11:36 07/29/18 11:36 Lab Statement: Any lab studies that have been ordered have been reviewed, and results considered in the medical decision making process. Dizzy Course/Dx - Course Course Of Treatment: Nurse's notes reviewed. The patient with type 1 diabetes and recent upper respiratory infection now with symptoms of vertigo. Her blood sugar is normal and she has no acidosis. Upper respiratory infection seems to be improving. She was negative for influenza. There is fluid behind the right ear which is likely causative. She was treated symptomatically with relief. She'll follow up closely with her primary care physician for labyrinthitis. - Diagnoses Differential Diagnosis/HQI/PQRI: Hypovolemia, Labyrinthitis, Medication Reaction , Metabolic Abnormality Provider Diagnoses: Labyrinthitis, Diabetes mellitus type 1, Vertigo Discharge - Sign-Out/Discharge Documenting (check all that apply): Patient Departure - Discharge Patient Received Moderate/Deep Sedation with Procedure: No - Discharge Plan Condition: Improved Disposition: HOME Prescriptions: Guaifenesin/Pseudo 600/60(NF) [Mucinex D 600/60 (NF)] 1 tab PO BID PRN #20 tab PRN Reason: Congestion Meclizine HCl [Dramamine Less Drowsy] 25 mg PO TID PRN #20 tablet PRN Reason: dizziness/spinning Patient Education Materials: Labyrinthitis (ED) Referrals: Nemo WOLFE,Mathew Tabor [Primary Care Provider] - Additional Instructions: Call your doctor today to schedule prompt follow-up. Stay well-hydrated. Return with fever, rising blood sugars, worsening symptoms or other concerns. Do not drive while feeling dizzy. - Billing Disposition and Condition Condition: IMPROVED Disposition: Home - Attestation Statements Document Initiated by Julio: Yes Documenting Keoibe: Areli Daily Provider For Whom Julio is Documenting (Include Credential): James Jay MD Scribe Attestation: Areli Cruz, scribed for James Jay MD on 07/29/18 at 1415. Scribe Documentation Reviewed: Yes Provider Attestation: The documentation as recorded by the Areli alcantara accurately reflects the service I personally performed and the decisions made by me, James Jay MD Status of Scribe Document: Viewed
[2018-07-29] MEDS ORDERED: NS 0.9% 1000 ML** 1,000 ML IV ONE (11:07)
[2018-07-29] MEDS ORDERED: Meclizine TAB* 12.5 MG PO ONE (11:07)
[2018-07-29] MEDS ORDERED: diPHENhydraMINE IV* 50 MG/ML 1 ml VIAL (BENADRYL) IV ONE (11:07)
[2018-07-29 11:40] LABS: Influenza A Molecular NEGATIVE (Negative); Influenza B Molecular NEGATIVE (Negative)
[2018-07-29 12:05] LABS: ABS Basophils 0.1 10^3/ul (0-0.2); ABS Eosinophils 0.3 10^3/ul (0-0.6); ABS Lymphocytes 2.2 10^3/ul (1.0-4.8); ABS Monocytes 0.5 10^3/ul (0-0.8); ABS Neutrophils 1.9 10^3/ul (1.5-7.7); ABS Nucleated RBC 0 10^3/ul; Hematocrit 34 % (33-41); Hemoglobin 10.7 g/dL (12.0-16.0); Lymphocyte % 45.2 %; Mean Corpuscular HGB Conc 32 g/dL (31-36); Mean Corpuscular Hemoglobin 23 pg (27-31); Mean Corpuscular Volume 71 fL (80-97); Mean Platelet Volume 8.4 fL (7.4-10.4); Nucleated Red Blood Cells % 0; Platelet Count 296 10^3/uL (150-450); Red Blood Count 4.74 10^6 /uL (3.70-4.87); Red Cell Distribution Width 17 % (10.5-15); White Blood Count 4.9 10^3/uL (3.5-10.8)
[2018-07-29 12:11] LABS: BUN/Creatinine Ratio 18.8 (8-20); Calcium 8.3 mg/dL (8.6-10.3); EGFR African American 112.9 (>60); EGFR Non-African American 93.3 (>60); Potassium 4.1 mmol/L (3.5-5.0)
[2018-07-29 13:24] VITALS: BP 139/83
== END 2018-07-29 13:29 | disposition home or self-care (01) ==
LOC: ED 10:43
DX: H83.09 Labyrinthitis, unspecified ear (principal); E10.8 Type 1 diabetes mellitus with unspecified complications; R11.2 Nausea with vomiting, unspecified; R19.7 Diarrhea, unspecified; R42 Dizziness and giddiness; R05 Cough
CPT/HCPCS: 36415; 80048; 85025; 96361; 96374; 99283; A9270-GY; J1200

== ENCOUNTER 2019-03-12 08:14 | Emergency (ER) | payer OTHER ==
[2019-03-12 08:28] VITALS: BP 118/81
--- NOTE | 2019-03-12 10:42 | UC ---
Complaint Female HPI - HPI Summary HPI Summary: SEVERAL DAYS OF LOWER ABDOMINAL PRESSURE, URINARY FREQUENCY, URGENCY AND DYSURIA. HAS LOW BACK PAIN THAT IS WORSE IN THE RIGHT FLANK AREA. INTERMITTENT NAUSEA. NO FEVER. - History Of Current Complaint Chief Complaint: UCGeneralIllness Stated Complaint: BURNING URINATION Time Seen by Provider: 03/12/19 09:48 Hx Obtained From: Patient Hx Last Menstrual Period: 02/26/19 Onset/Duration: Gradual Onset, Lasting Days, Still Present Timing: Constant Severity Initially: Moderate Severity Currently: Moderate Pain Intensity: 4 Pain Scale Used: 0-10 Numeric Character: Sharp Aggravating Factor(s): Nothing Alleviating Factor(s): Nothing Associated Signs And Symptoms: Positive: Back Pain, Nausea. Negative: Fever - Allergies/Home Medications Allergies/Adverse Reactions: Allergies Allergy/AdvReac Type Severity Reaction Status Date / Time gerardo Allergy Difficulty Verified 03/12/19 08:18 Breathing lisinopril Allergy Swelling Verified 03/12/19 08:18 Of Face,Lips,& Throat NSAIDS (Non-Steroidal AdvReac See Comment Verified 03/12/19 08:18 Anti-Inflamma [place] Allergy Airway Uncoded 03/12/19 08:18 Obstruction Home Medications: Home Medications lamoTRIgine TAB(*) [Lamictal TAB(*)] 100 mg PO BID 03/12/19 [History Confirmed 03/12/19] PMH/Surg Hx/FS Hx/Imm Hx Endocrine History: Diabetes - TYPE I - Surgical History Surgical History: Yes Surgery Procedure, Year, and Place: C-SECTIONS 1995 & 1999. TUBAL LIGATION - Family History Known Family History: Positive: Cardiac Disease, Diabetes - Social History Alcohol Use: None Substance Use Type: None Smoking Status (MU): Never Smoked Tobacco Review of Systems All Other Systems Reviewed And Are Negative: Yes Constitutional: Positive: Negative ENT: Positive: Negative Respiratory: Positive: Negative Cardiovascular: Positive: Negative Gastrointestinal: Positive: Abdominal Pain, Nausea Genitourinary: Positive: Dysuria, Frequency, Urgency Physical Exam Triage Information Reviewed: Yes Appearance: Well-Appearing, No Pain Distress, Well-Nourished Vital Signs: Initial Vital Signs Temp 98.3 F 03/12/19 08:21 Pulse 98 03/12/19 08:21 Resp 18 03/12/19 08:21 BP 118/81 03/12/19 08:21 Pulse Ox 100 03/12/19 08:21 Laboratory Tests 03/12/19 08:45 POC Urine Color Yellow POC Urine Clarity Cloudy POC Urine pH 5.0 POC Ur Specif [place] >= 1.030 POC Urine Protein 1+ A POC Ur Glucose (UA) Negative POC Urine Ketones Negative POC Urine Blood 3+ A POC Urine Nitrite Negative POC Urine Bilirubin Negative POC Urine Urobilinogen 0.2 POC U Leukocyte Esteras 2+ A Vital Signs Reviewed: Yes Eyes: Positive: Conjunctiva Clear ENT: Positive: Hearing grossly normal Neck: Positive: Supple Respiratory: Positive: No respiratory distress, No accessory muscle use Cardiovascular: Positive: Pulses Normal Abdomen Description: Positive: Soft, Other: - SUPRAPUBIC TENDERNESS. Negative: CVA Tenderness (R), CVA Tenderness (L), Distended, Guarding Musculoskeletal: Positive: No Edema Neurological: Positive: Alert Psychological: Positive: Age Appropriate Behavior Skin: Negative: Rashes Diagnostics - Radiology CT ABD/PELVIS W/O CONTRAST Radiology Interpretation Completed By: Radiologist Summary of Radiographic Findings: 1. NO HYDRONEPHROSIS OR DEFINITE NEPHROLITHIASIS. A PUNCTATE CALCIFICATION POSTERIOR TO THE BLADDER IS FAVORED TO BE PALLETIZER OF A PHLEBOLITH. 2. MILD URINARY BLADDER WALL THICKENING AND PERIVESICAL STRANDING. CORRELATE WITH URINALYSIS FOR UTI. 3. A ROUNDED LEFT ADNEXAL STRUCTURE IS ARE POORLY EVALUATED BY CT. IT COULD BE PALLETIZER OF A LEIOMYOMA OR OVARIAN STRUCTURE. IT WOULD BE BETTER CHARACTERIZED BY PELVIC ULTRASOUND. Complaint Female Dx - Differential Dx/Diagnosis Provider Diagnosis: UTI (urinary tract infection) Discharge ED - Sign-Out/Discharge Documenting (check all that apply): Patient Departure All imaging exams completed and their final reports reviewed: Yes - Discharge Plan Condition: Stable Disposition: HOME Prescriptions: Phenazopyridine TAB* [Pyridium TAB*] 200 mg PO TID #6 tab Sulfamethox/Trimethoprim DS* [Bactrim DS 800/160 TAB*] 1 tab PO BID #14 tab Patient Education Materials: Urinary Tract Infection in Women (ED) Forms: *Work Release Referrals: Nemo WOLFE,Mathew Tabor [Primary Care Provider] - 2 Weeks Additional Instructions: URINE TEST POSITIVE FOR UTI. TAKE THE ANTIBIOTIC FOR THE FULL COURSE. STAY WELL HYDRATED. URINE SPECIMEN SENT FOR CULTURE. WE WILL CALL YOU IF YOUR MEDICATION NEEDS TO BE CHANGED. GIVEN YOUR MICROSCOPIC HEMATURIA, NAUSEA AND RIGHT FLANK PAIN A CT SCAN WAS OBTAINED TO RULE OUT KIDNEY STONE. NO CLEAR KIDNEY STONE SEEN ON CT SCAN HOWEVER THERE IS AN INCIDENTAL FINDING OF A LEFT ADNEXAL STRUCTURE. RADIOLOGY RECOMMENDS PELVIC ULTRASOUND FOR FURTHER EVALUATION. FOLLOW-UP WITH YOUR PCP FOR THIS. GO TO THE ER WITHOUT FAIL IF YOU DEVELOP WORSENING PAIN, NAUSEA, ELANA BLOOD IN THE URINE, FEVER OR ANY OTHER CONCERNING SYMPTOMS. - Billing Disposition and Condition Condition: STABLE Disposition: Home
--- NOTE | 2019-03-14 17:19 | UC ---
- Progress Note Progress Note: Nurse to call- if patient having vaginal itching, discharge will call in script for metronidazole x 7 days d/t + francisco j vaginalis on urine culture. - Dinora Hyman PAC Course/Dx - Diagnoses Provider Diagnoses: UTI (urinary tract infection) Discharge ED - Sign-Out/Discharge Documenting (check all that apply): Patient Departure All imaging exams completed and their final reports reviewed: Yes - Discharge Plan Condition: Stable Disposition: HOME Prescriptions: Phenazopyridine TAB* [Pyridium TAB*] 200 mg PO TID #6 tab Sulfamethox/Trimethoprim DS* [Bactrim DS 800/160 TAB*] 1 tab PO BID #14 tab Patient Education Materials: Urinary Tract Infection in Women (ED) Forms: *Work Release Referrals: Nemo WOLFE,Mathew Tabor [Primary Care Provider] - 2 Weeks Additional Instructions: URINE TEST POSITIVE FOR UTI. TAKE THE ANTIBIOTIC FOR THE FULL COURSE. STAY WELL HYDRATED. URINE SPECIMEN SENT FOR CULTURE. WE WILL CALL YOU IF YOUR MEDICATION NEEDS TO BE CHANGED. GIVEN YOUR MICROSCOPIC HEMATURIA, NAUSEA AND RIGHT FLANK PAIN A CT SCAN WAS OBTAINED TO RULE OUT KIDNEY STONE. NO CLEAR KIDNEY STONE SEEN ON CT SCAN HOWEVER THERE IS AN INCIDENTAL FINDING OF A LEFT ADNEXAL STRUCTURE. RADIOLOGY RECOMMENDS PELVIC ULTRASOUND FOR FURTHER EVALUATION. FOLLOW-UP WITH YOUR PCP FOR THIS. GO TO THE ER WITHOUT FAIL IF YOU DEVELOP WORSENING PAIN, NAUSEA, ELANA BLOOD IN THE URINE, FEVER OR ANY OTHER CONCERNING SYMPTOMS. - Billing Disposition and Condition Condition: STABLE Disposition: Home
== END 2019-03-12 11:21 | disposition home or self-care (01) ==
LOC: UCEAST 08:14
DX: N39.0 Urinary tract infection, site not specified (principal); N32.89 Other specified disorders of bladder; E10.9 Type 1 diabetes mellitus without complications; Z88.8 Allergy status to other drugs, medicaments and biological substances; Z91.09 Other allergy status, other than to drugs and biological substances; Z91.018 Allergy to other foods
CPT/HCPCS: 74176; 81003; 87086; 87088; 99212; G0463